=== PATIENT | female | born 1975 | race Two or more races ===

== ENCOUNTER 2025-06-04 09:15 | Day surgery (SDC) | payer MEDICAID, SELFPAY ==
[2025-06-04] VITALS (10 sets, daily range): BP systolic 126–149; BP diastolic 77–95; PULSE 71–86; RESP 12–20; TEMP 36.4–36.7; O2SAT 95–100; BMI 25.3
[2025-06-04] MEDS: RINGERS LACTATED 1000 ML 1,000 ML 125 ML IV (10:36)
[2025-06-04] MEDS: MIDAZOLAM INJ 1 MG/ML VIAL 2 ML (ASD USE ONLY) 2 MG IVP (10:44)
[2025-06-04] MEDS: fentaNYL CIT INJ 50 mCg/ML AMP 2ML (ASD USE ONLY) IVP (10:44)
== END 2025-06-04 11:55 | disposition home or self-care (01) ==
PROVIDERS: Family Provider Internal Medicine Gastroenterology; PCP Physician Assistant; Referring Provider Internal Medicine Gastroenterology; Visit Provider Internal Medicine Gastroenterology
PROC: 0DBE8ZX Excision of Large Intestine, Via Natural or Artificial Opening Endoscopic, Diagnostic (ICD-10-PCS; CPT 45380; principal; 2025-06-04 10:30)
DX: K62.1 Rectal polyp (principal); K64.8 Other hemorrhoids; I10 Essential (primary) hypertension
CPT/HCPCS: 45380; 81025; A4217; A4649; J1200; J2250; J3010; J7120